=== PATIENT | female | born 1960 | race Hispanic/Latino ===

== ENCOUNTER → 2017-07-21 | Outpatient (CLI) | payer OTHER | LOC: MAMMO 08:11 | PROVIDERS: ATTEND Internal Medicine | DX: Z12.31 Encounter for screening mammogram for malignant neoplasm of breast (principal) | CPT/HCPCS: 77067 ==

== ENCOUNTER 2018-12-30 12:08 | Emergency (ER) | payer OTHER ==
[~2018-12-30] VITALS: Ht 144.8 cm; Wt 72.6 kg
--- OUTSIDE RECORDS SUMMARY | 2018-12-30 12:11 | XMS REPORT ---
[facility] Address Unknown Phone Unavailable Care Team Providers Care Directory Assistance Operator Name Role Phone Joes CLARK Unavailable Unavailable Payers Payer Name Policy Type Policy Number Effective Date Expiration Date Problems This patient has no known problems. Allergies, Adverse Reactions, Alerts Allergy Name Allergy Type Status Severity Reaction(s) Onset Date Inactive Date Treating Clinician Comments No Known Allergies DA Active U 2018-12-30 00:00:00 No Known Intolerances DA Active U 2010-04-08 00:00:00 Medications This patient has no known medications. Results Test Description Test Time Test Comments Text Results Atomic Results Result Comments URINALYSIS COMPLETE 2018-12-30 11:39:00 UA COLOR (test code=COLU) YELLOW YELLOW UA APPEARANCE (test code=APPU) CLEAR CLEAR UA GLUCOSE DIPSTICK (test code=DGLUU) norm mg/dL NEGATIVE UA BILIRUBIN DIPSTICK (test code=BILU) NEGATIVE mg/dL NEGATIVE UA KETONE DIPSTICK (test code=KETU) neg mg/dL NEGATIVE UA SPECIFIC GRAVITY (test code=SGU) 1.010 1.001-1.035 UA BLOOD DIPSTICK (test code=MORRO) 25 (1+) Galen/uL NEGATIVE UA PH DIPSTICK (test code=LEO) 6.0 5.0-8.0 UA PROTEIN DIPSTICK (test code=PROU) neg mg/dL Neg-15 UA UROBILINIOGEN DIPSTICK (test code=URO) norm mg/dL 0.0-0.2 UA NITRITE DIPSTICK (test code=SUMMER) NEGATIVE NEGATIVE UA LEUKOCYTE ESTERASE DIPSTICK (test code=LEUU) 500 Lucille/uL (3+) uL NEGATIVE UA WBC (test code=WBCU) 6-10 per HPF 0-5 UA RBC (test code=RBCU) 0-2 per HPF 0-5 UA EPITHELIAL CELLS (test code=EPIU) FEW per HPF Few UA BACTERIA (test code=BACU) FEW per HPF NONE URINALYSIS W/O [id number] 11:39:00* Test Item Value Reference Range Comments UA MICROSCOPIC NEEDED? (test code=UAMICRO) YES URINALYSIS [id number] 11:29:00* Test Item Value Reference Range Comments UA COLOR (test code=COLU) YELLOW YELLOW UA APPEARANCE (test code=APPU) CLEAR CLEAR UA GLUCOSE DIPSTICK (test code=DGLUU) norm mg/dL NEGATIVE UA BILIRUBIN DIPSTICK (test code=BILU) NEGATIVE mg/dL NEGATIVE UA KETONE DIPSTICK (test code=KETU) neg mg/dL NEGATIVE UA SPECIFIC GRAVITY (test code=SGU) 1.010 1.001-1.035 UA BLOOD DIPSTICK (test code=MORRO) 25 (1+) Galen/uL NEGATIVE UA PH DIPSTICK (test code=LEO) 6.0 5.0-8.0 UA PROTEIN DIPSTICK (test code=PROU) neg mg/dL Neg-15 UA UROBILINIOGEN DIPSTICK (test code=URO) norm mg/dL 0.0-0.2 UA NITRITE DIPSTICK (test code=SUMMER) NEGATIVE NEGATIVE UA LEUKOCYTE ESTERASE DIPSTICK (test code=LEUU) 500 Lucille/uL (3+) uL NEGATIVE UA WBC (test code=WBCU) per HPF 0-5 UA RBC (test code=RBCU) per HPF 0-5 UA EPITHELIAL CELLS (test code=EPIU) per HPF Few UA BACTERIA (test code=BACU) per HPF NONE URINALYSIS W/O [id number] 11:29:00* Test Item Value Reference Range Comments UA MICROSCOPIC NEEDED? (test code=UAMICRO) YES URINALYSIS [id number] 11:29:00* Test Item Value Reference Range Comments UA COLOR (test code=COLU) YELLOW YELLOW UA APPEARANCE (test code=APPU) CLEAR CLEAR UA GLUCOSE DIPSTICK (test code=DGLUU) norm mg/dL NEGATIVE UA BILIRUBIN DIPSTICK (test code=BILU) NEGATIVE mg/dL NEGATIVE UA KETONE DIPSTICK (test code=KETU) neg mg/dL NEGATIVE UA SPECIFIC GRAVITY (test code=SGU) 1.010 1.001-1.035 UA BLOOD DIPSTICK (test code=MORRO) 25 (1+) Galen/uL NEGATIVE UA PH DIPSTICK (test code=LEO) 6.0 5.0-8.0 UA PROTEIN DIPSTICK (test code=PROU) neg mg/dL Neg-15 UA UROBILINIOGEN DIPSTICK (test code=URO) norm mg/dL 0.0-0.2 UA NITRITE DIPSTICK (test code=SUMMER) NEGATIVE NEGATIVE UA LEUKOCYTE ESTERASE DIPSTICK (test code=LEUU) 500 Lucille/uL (3+) uL NEGATIVE UA WBC (test code=WBCU) per HPF 0-5 UA RBC (test code=RBCU) per HPF 0-5 UA EPITHELIAL CELLS (test code=EPIU) per HPF Few UA BACTERIA (test code=BACU) per HPF NONE URINALYSIS W/O [id number] 11:29:00* Test Item Value Reference Range Comments UA MICROSCOPIC NEEDED? (test code=UAMICRO) YES MAMMOGRAPHY DIGITAL SCR BILAT [place] [address] Patient Name: ASA HORNE MR #: [id number] : 1960 Age/Sex: 56/F Req #: [id number] Adm Physician: Ordered by: EILEEN CLARK MD Report #: [id number] Location: [facility] Room/Bed: Procedure: [id number] MG/MAMMOGRAPHY DIGITAL SCR BILAT Exam Date: 07/21/17 Exam Time: 0926 REP ORT STATUS: Signed #[id number] - [id number] #BILATERAL DIGITAL SCREENIN G MAMMOGRAM WITH CAD: 07/21/2017 CLINICAL: Routine screening. Comparison is made to exams dated: 03/29/2016 mammogram and 06/05/2011 mammogram - [facility]. Current study contains 4 films. The tissue of both breasts is heterogeneously dense. This may lower the sensitivity of mammog asad. Current study was also evaluated with a Computer Aided Detection ( CAD) system. There are benign calcifications in the left breast. No sign ificant masses, calcifications, or other findings are seen in either breast. There has been no significant interval change. IMPRESSION: BENIGN There is no mammographic evidence of malignancy. A 1 year screening mammogram is robbie mmended. The patient will be notified by letter of the results. Fina umanzor/delroy:07/24/2017 10:51:23 Special Effects Designer nologist: Jessica Navas RT(R)(M), [facility] letter s ent: Compared to Prior B9 Mammogram BI-RADS: 2 Benign Dictated By: DOMI MACIAS DO 1051 Transc ribed By: DELROY on 07/24/17 1051 COPY TO: EILEEN CLARK MD
[2018-12-30] MEDS ORDERED: KETOROLAC TROME10 MG PO (13:31)
[2018-12-30] MEDS ORDERED: VALIUM2 MG PO (13:31)
[2018-12-30 14:24] LABS: BILIRUBIN,URINE NEGATIVE (NEGATIVE); CLARITY,URINE CLEAR (CLEAR); COLOR,URINE YELLOW (YELLOW); KETONES,URINE NEGATIVE (NEGATIVE); LEUKOCYTE ESTERASE ,URINE SMALL (NEGATIVE); NITRITE,URINE NEGATIVE (NEGATIVE); PROTEIN,URINE DIPSTICK NEGATIVE (NEGATIVE); URINE UROBILINOGEN 0.2 mg/dL (0.2 - 1)
[2018-12-30 14:41] LABS: BACTERIA,URINE FEW /HPF; EPITHELIAL CELLS,URINE FEW /LPF; RBC,URINE 0-5 /HPF (0-5); RENAL EPITHELIAL CELLS,URINE RARE; WBC,URINE (MAN) 0-5 /HPF (0-5)
[2018-12-30 15:30] VITALS: BP 132/70
== END 2018-12-30 15:34 | disposition home or self-care (01) ==
LOC: ER 12:08
DX: S39.012A Strain of muscle, fascia and tendon of lower back, initial encounter (principal); X50.0XXA Overexertion from strenuous movement or load, initial encounter; Y92.008 Other place in unspecified non-institutional (private) residence as the place of occurrence of the external cause; I10 Essential (primary) hypertension; E78.5 Hyperlipidemia, unspecified; Z91.19 Patient's noncompliance with other medical treatment and regimen
CPT/HCPCS: 36415; 81001; 82948; 99283

== ENCOUNTER → 2019-01-05 | Outpatient (CLI) | payer OTHER ==
[~2019-01-05] MED LIST: KETOROLAC TROME10 MG PO; VALIUM2 MG PO
--- NOTE | 2019-01-05 12:45 | Diagnostic Imaging Report ---
EXAMINATION: CERVICAL 3 VIEWS INDICATION: Neck pain COMPARISON: None FINDINGS: No acute fracture. Vertebral body heights are maintained. Alignment is anatomic. Minimal degenerative changes. The prevertebral soft tissues are normal in thickness. The partially visualized lung apices are clear. IMPRESSION: Anatomic alignment of the cervical spine. Signed by: Bola Jimenes MD on 01/05/2019 12:42 PM
== END ==
LOC: MAMMO 10:55
PROVIDERS: ATTEND Internal Medicine
DX: Z12.31 Encounter for screening mammogram for malignant neoplasm of breast (principal); M47.22 Other spondylosis with radiculopathy, cervical region
CPT/HCPCS: 72040; 77067